=== PATIENT | female | born 1930 | race Caucasian/White ===

== ENCOUNTER 2020-03-20 17:54 | Inpatient (IN) | payer MEDICARE ==
[~2020-03-20] VITALS: Ht 157.5 cm; Wt 70.0 kg
--- NOTE | 2020-03-20 18:03 | NUR ---
Dr. Gonzalez at bedside.
--- NOTE | 2020-03-20 18:03 | NUR ---
Bekah/caregiver [phone].
[2020-03-20] MEDS ORDERED: LISI-600 PO (18:13)
[2020-03-20] MEDS ORDERED: LAN0.125T PO (18:13)
[2020-03-20] MEDS ORDERED: CARV3.122 PO (18:13)
[2020-03-20] MEDS ORDERED: FURO-149 PO (18:13)
[2020-03-20 18:22] LABS: BASOPHILS # (AUTO) 0.1 X10'3 (0-0.2); BASOPHILS % (AUTO) 0.6 % (0-1); EOSINOPHILS # (AUTO) 0.2 X10'3 (0-0.9); EOSINOPHILS % (AUTO) 1.8 % (0-6); HEMATOCRIT 38.5 % (35.0-45.0); HEMOGLOBIN 12.5 g/dl (12.0-16.0); LYMPHOCYTES # (AUTO) 1.9 X10'3 (1.1-4.8); LYMPHOCYTES % (AUTO) 20.1 % (21-51); MEAN CORPUSCULAR HEMOGLOBIN 29.4 PG (27.0-31.0); MEAN CORPUSCULAR HGB CONC 32.4 g/dL (33.0-36.5); MEAN CORPUSCULAR VOLUME 90.6 FL (78-98); MEAN PLATELET VOLUME 8.7 FL (7.4-10.4); MONOCYTES # (AUTO) 1.1 X10'3 (0-0.9); MONOCYTES % (AUTO) 11.6 % (2-12); NEUTROPHILS # (AUTO) 6.4 X10'3 (1.8-7.7); NEUTROPHILS % (AUTO) 65.9 % (42-75); PLATELET COUNT 215 X10'3 (140-440); RED BLOOD COUNT 4.25 X10'6 (4.20-5.60); RED CELL DISTRIBUTION WIDTH 16.8 % (11.5-14.5); WHITE BLOOD COUNT 9.7 X10'3 (4.5-11.0)
[2020-03-20 18:39] LABS: ALANINE AMINOTRANSFERASE 27 U/L (12-78); ALBUMIN 3.2 G/DL (3.4-5.0); ALBUMIN/GLOBULIN RATIO 0.9 (1.1-1.5); ALKALINE PHOSPHATASE 54 IU/L (46-116); ANION GAP 11 (8-16); ASPARTATE AMINO TRANSFERASE 25 U/L (10-37); BILIRUBIN,TOTAL 0.4 MG/DL (0.1-1.0); BLOOD UREA NITROGEN 32 MG/DL (7-18); BUN/CREATININE RATIO 14.3 (6.6-38.0); CALCIUM 8.6 MG/DL (8.5-10.1); CHLORIDE 111 MMOL/L (99-107); CREATININE 2.23 MG/DL (0.40-0.90); GLUCOSE 104 MG/DL (70-104); POTASSIUM 4.2 MMOL/L (3.5-5.1); SODIUM 148 MMOL/L (135-145); TOTAL CARBON DIOXIDE 26.3 MMOL/L (24-32); TOTAL PROTEIN 6.9 G/DL (6.4-8.2); eGFR 21 ML/MIN
--- NOTE | 2020-03-20 19:30 | NUR ---
Spoke to patient's daughter Kanwal, and with patient's permission, updated daughter as to patient's current status and admission.
[2020-03-20] MEDS ORDERED: normal saline 1000ml 1,000 ML IV SCH (19:37)
[2020-03-20] MEDS ORDERED: ondansetron/PF 4mg/2ml inj IV PRN ×2 (19:40→19:55)
[2020-03-20] MEDS ORDERED: acetaminophen 325mg tablet PO PRN (19:40)
[2020-03-20] MEDS ORDERED: magnesium hydroxide 30ml (MOM) UD suspension PO PRN (19:40)
[2020-03-20] MEDS ORDERED: mag hydrox/Alum hydrox/simeth 30ml oral suspension PO PRN (19:40)
[2020-03-20] MEDS ORDERED: potassium CL 10mEq/100ml bag 100 ML IV PRN ×2 (19:40)
--- NOTE | 2020-03-20 19:40 | NUR ---
Spoke to MD Santiago at bedside who reported that MD Bowling would be performing the pacemaker surgery lonny.
[2020-03-20] MEDS ORDERED: ringers solution, lacted 1,000 ML IV SCH (19:51)
[2020-03-20] MEDS ORDERED: ringers solution, lacted 1,000 ML IV ONE (19:51)
[2020-03-20] MEDS ORDERED: hydrALAZINE 20mg/ml inj. IV PRN (19:55)
[2020-03-20] MEDS ORDERED: fentaNYL/PF 50MCG/1 ML 2ML syringe IV PRN ×2 (19:55)
[2020-03-20] MEDS ORDERED: enalaprilat dihydrate 2.5mg/2ml vial IV PRN (19:55)
[2020-03-20] MEDS ORDERED: HYDROmorphone inj. 0.5 MG/0.5 ML DISP.SYRIN IV PRN ×2 (19:55)
[2020-03-20] MEDS: lisinopril 20mg tablet PO SCH (20:00)
[2020-03-20] MEDS: K and/or MAG REPLACEMENT MC SCH (20:00)
[2020-03-20] MEDS: carVEDilol 3.125mg tablet PO SCH (20:00)
--- NOTE | 2020-03-20 20:15 | NUR ---
TOLD THE PT WILL BE HAVING SURGERY AT 2129.
--- NOTE | 2020-03-20 20:32 | NUR ---
Pt spoke to her daughter Kanwal on the phone and updated her as to the status of her surgery.
[2020-03-20] MEDS ORDERED: LIDOcaine 1% w/epiNEPHrine 1:200,000 30ml vial ONE (20:59)
--- NOTE | 2020-03-20 21:07 | NUR ---
Report given to surgical charge nurse.
[2020-03-20] MEDS ORDERED: midazolam 2 mg/2 ml injection ONE (21:14)
[2020-03-20] MEDS ORDERED: fentaNYL/PF 50MCG/1 ML 2ML syringe ONE (21:14)
[2020-03-20] MEDS ORDERED: ceFAZolin/dextrose 1 GM/50ml ADD-VANTAGE bag IV ONE (21:45)
[2020-03-20] MEDS ORDERED: atropine 0.4 mg/ml 20ml vial ONE (21:51)
[2020-03-20] MEDS ORDERED: propofol inj 20 ML IV ONE (21:52)
[2020-03-20 22:50] VITALS: BP 145/72
--- NOTE | 2020-03-20 22:50 | NUR ---
Received from OR via BED, accompanied by Anesthesiologist INGE and report given by Anesthesiolgist. PT DROWSY, OXYGENATING WELL ON 10 LPM O2 VIA MASK, NO RESP DISTRESS NOTED. PT DENIES NAUSEA OR PAIN AT THIS TIME. STERI STRIP OCCLUSIVE DSG TO L CHEST, NO SX OF HEMATOMA OR DRAINAGE. RADIAL PULSES PALP. LUE IN SLING. VSS, PACED AT 70.
[2020-03-20 23:00] VITALS: BP 141/85
[2020-03-20 23:10] VITALS: BP 141/71
[2020-03-20 23:20] VITALS: BP 140/74
--- NOTE | 2020-03-20 23:30 | NUR ---
Report called to receiving nurse. Transferred via BED Belongings WITH PT, INCLUDING CLOTHING AND PURSE. VSS, NO PAIN. TOLERATING PO FLUIDS WELL. TRANSFERRED TO ACCE UNIT IN STABLE CONDITION. Special Issues communicated to receiving nurse.
[2020-03-20 23:35] VITALS: BP 167/76
--- NOTE | 2020-03-20 23:45 | NUR ---
Patient on the floor. Alert, oriented x4. Not on any distress. The PPM site clean dry intact.
--- NOTE | 2020-03-21 01:27 | NUR ---
Dr. Ch called and he ordered heart healthy diet for the patient. No other orders were given at this time.
[2020-03-21 03:50] VITALS: BP 157/90
[2020-03-21 05:26] LABS: BASOPHILS % (AUTO) 0.6 % (0-1); EOSINOPHILS # (AUTO) 0.2 X10'3 (0-0.9); EOSINOPHILS % (AUTO) 2.2 % (0-6); HEMATOCRIT 41.1 % (35.0-45.0); HEMOGLOBIN 13.3 g/dl (12.0-16.0); LYMPHOCYTES # (AUTO) 2.2 X10'3 (1.1-4.8); LYMPHOCYTES % (AUTO) 26.3 % (21-51); MEAN CORPUSCULAR HEMOGLOBIN 29.8 PG (27.0-31.0); MEAN CORPUSCULAR HGB CONC 32.3 g/dL (33.0-36.5); MEAN CORPUSCULAR VOLUME 92.1 FL (78-98); MEAN PLATELET VOLUME 8.9 FL (7.4-10.4); MONOCYTES # (AUTO) 0.8 X10'3 (0-0.9); MONOCYTES % (AUTO) 9.5 % (2-12); NEUTROPHILS # (AUTO) 5.1 X10'3 (1.8-7.7); NEUTROPHILS % (AUTO) 61.4 % (42-75); PLATELET COUNT 178 X10'3 (140-440); RED BLOOD COUNT 4.47 X10'6 (4.20-5.60); RED CELL DISTRIBUTION WIDTH 16.9 % (11.5-14.5); WHITE BLOOD COUNT 8.3 X10'3 (4.5-11.0)
[2020-03-21 05:37] LABS: ALANINE AMINOTRANSFERASE 36 U/L (12-78); ALBUMIN 3.2 G/DL (3.4-5.0); ALBUMIN/GLOBULIN RATIO 0.9 (1.1-1.5); ALKALINE PHOSPHATASE 49 IU/L (46-116); ANION GAP 9 (8-16); ASPARTATE AMINO TRANSFERASE 32 U/L (10-37); BILIRUBIN,TOTAL 0.4 MG/DL (0.1-1.0); BLOOD UREA NITROGEN 31 MG/DL (7-18); BUN/CREATININE RATIO 16.1 (6.6-38.0); CALCIUM 8.8 MG/DL (8.5-10.1); CHLORIDE 109 MMOL/L (99-107); CREATININE 1.93 MG/DL (0.40-0.90); GLUCOSE 95 MG/DL (70-104); POTASSIUM 4.3 MMOL/L (3.5-5.1); SODIUM 146 MMOL/L (135-145); TOTAL CARBON DIOXIDE 27.6 MMOL/L (24-32); TOTAL PROTEIN 6.9 G/DL (6.4-8.2); eGFR 25 ML/MIN
[2020-03-21 06:00] VITALS: BP 182/98
--- NOTE | 2020-03-21 06:09 | NUR ---
Problems reprioritized. Patient report given Alexey, questions answered & plan of care reviewed with .
[2020-03-21] MEDS: lisinopril 20mg tablet PO SCH (07:35)
[2020-03-21] MEDS: carVEDilol 3.125mg tablet PO SCH (07:35)
[2020-03-21] MEDS: K and/or MAG REPLACEMENT MC SCH (08:00)
[2020-03-21] MEDS ORDERED: digoxin 125mcg (0.125mg) tablet PO SCH (08:00)
[2020-03-21] MEDS ORDERED: furosemide 40mg tablet PO SCH (08:00)
[2020-03-21 11:34] VITALS: BP 163/82
[2020-03-21] MEDS: acetaminophen 325mg tablet PO PRN ×2 (12:07→17:03)
[2020-03-21 15:20] VITALS: BP 110/50
--- NOTE | 2020-03-21 17:10 | NUR ---
Patient stable for discharge per MD orders. All discharge instructions and educations reviewed with patient and patients daughter and questions answered. PIV discontinued, dressing clean, dry and intact. canula tip intact, patient tolerated well. tele monitor removed. all known belongings sent with patient. patient transported via wheelchair to [facility] driven by family.
== END 2020-03-21 17:00 | disposition home or self-care (01) | DRG 243 ==
LOC: ER 17:55 → ED HOLD 19:37 → MED 3N 23:30
PROVIDERS: ADMIT Internal Medicine; ATTEND Internal Medicine
PROC: 02HK3JZ Insertion of Pacemaker Lead into Right Ventricle, Percutaneous Approach (ICD-10-PCS; 2020-03-20)
PROC: 0JH604Z Insertion of Pacemaker, Single Chamber into Chest Subcutaneous Tissue and Fascia, Open Approach (ICD-10-PCS; principal; 2020-03-20 21:45)
DX: I44.7 Left bundle-branch block, unspecified (principal); I13.0 Hypertensive heart and chronic kidney disease with heart failure and stage 1 through stage 4 chronic kidney disease, or unspecified chronic kidney disease; N18.4 Chronic kidney disease, stage 4 (severe); I49.5 Sick sinus syndrome; I48.20 Chronic atrial fibrillation, unspecified; I50.9 Heart failure, unspecified; Z66 Do not resuscitate; I83.90 Asymptomatic varicose veins of unspecified lower extremity; I87.8 Other specified disorders of veins; M06.9 Rheumatoid arthritis, unspecified; Z96.651 Presence of right artificial knee joint; M17.0 Bilateral primary osteoarthritis of knee; Z88.5 Allergy status to narcotic agent; Z88.0 Allergy status to penicillin; Z79.899 Other long term (current) drug therapy
CPT/HCPCS: 36415; 71045; 71048; 76000; 80053; 80162; 84484; 85025; 86885; 86900; 86901; 87081; 93005; 99285; A4215; A4565; A4618; A6258; A7000; C1786; G0378; J0461; J0690; J2250; J2704; J3010; J7030; J7120